=== PATIENT | female | born 1955 | race Caucasian/White ===

== ENCOUNTER 2021-08-12 09:48 | Emergency (ER) | payer BC ==
[~2021-08-12] VITALS: Ht 162.6 cm; Wt 59.0 kg
[2021-08-12] MEDS ORDERED: IV NORMAL SALINE 1000 ML BAG IV ONE (10:30)
[2021-08-12] MEDS ORDERED: PANTOPRAZOLE SODIUM 40 MG VIAL IV ONE (10:30)
[2021-08-12] MEDS ORDERED: ONDANSETRON 4 MG/2 ML VIAL IV ONE (10:30)
[2021-08-12] MEDS ORDERED: ONDANSETRON 4 MG/2 ML VIAL ONE (10:41)
[2021-08-12] MEDS ORDERED: PANTOPRAZOLE SODIUM 40 MG VIAL ONE (10:41)
[2021-08-12] MEDS ORDERED: LIDOCAINE VISCUS 2% 15 ML UDC MM ONE (10:45)
[2021-08-12] MEDS ORDERED: MAG HYDROX/AL HYDROX/SIMETH 30 ML LIQUID UDC PO ONE (10:45)
[2021-08-12] MEDS ORDERED: MAG HYDROX/AL HYDROX/SIMETH 30 ML LIQUID UDC ONE (11:16)
[2021-08-12] MEDS ORDERED: LIDOCAINE VISCUS 2% 15 ML UDC ONE (11:16)
--- NOTE | 2021-08-12 11:25 | NUR ---
Patient laying in bed at this time. Made aware of plan of care per provider. No acute distress noted at this time.
[2021-08-12 11:26] LABS: HEMATOCRIT 39.5 % (31.2-41.9); MEAN CORPUSCULAR HEMOGLOBIN 29.5 uug (24.7-32.8); MEAN CORPUSCULAR VOLUME 88.6 fL (75.5-95.3); PLATELET COUNT (AUTO) 246 K/uL (179-408)
[2021-08-12 11:30] LABS: CREATININE 0.8 mg/dL (0.6-1.3); POTASSIUM 4.4 mmol/L (3.5-5.1)
[2021-08-12 11:43] LABS: BILIRUBIN,DIRECT 0.2 mg/dL (0.0-0.2); BILIRUBIN,TOTAL 0.5 mg/dL (0.2-1.0); TOTAL PROTEIN, SERUM 6.4 g/dL (6.4-8.2)
[2021-08-12] MEDS ORDERED: OMEP40CA21 PO (15:12)
[2021-08-12] MEDS ORDERED: ONDA4TAB5 PO (15:14)
[2021-08-12 16:18] VITALS: BP 141/75
== END 2021-08-12 15:30 | disposition home or self-care (01) ==
LOC: ER 09:48
DX: K29.70 Gastritis, unspecified, without bleeding (principal); R07.9 Chest pain, unspecified; Z88.1 Allergy status to other antibiotic agents; Z88.2 Allergy status to sulfonamides; R00.1 Bradycardia, unspecified
CPT/HCPCS: 36415; 71045; 80048; 80076; 83690; 84484 ×2; 85025; 93005 ×2; 96361; 96374; 96375; 99285; C9113; J2405; 70030-TC; A4663; J7030